=== PATIENT | female | born 1995 | race Hispanic/Latino ===

== ENCOUNTER 2018-10-14 01:43 | Emergency (ER) | payer SELFPAY ==
[~2018-10-14] VITALS: Ht 160 cm; Wt 76.8 kg
[2018-10-14 02:21] LABS: HEMATOCRIT 36.8 % (37.0-47.0); HEMOGLOBIN 12.1 g/dl (12.0-16.0); IMMATURE GRANULOCYTES 0.2 % (0.0-5.0); MEAN CELL VOLUME 83.6 fL CALC (80.0-100.0); MEAN CORPUSCULAR HGB 27.5 pG CALC (26.0-32.0); MEAN CORPUSCULAR HGB CONC 32.9 g/L CALC (32.0-36.0); NEUT# 2.38 thou/uL (2.00-7.15); RED BLOOD COUNT 4.4 mill/uL (4.20-5.60); RED CELL DISTRI WIDTH 13.3 % (11.5-15.5)
[2018-10-14 02:50] VITALS: BP 132/77
[2018-10-14 02:52] LABS: ALBUMIN 4.2 g/dL (3.2-5.0); ALKALINE PHOSPHATASE 74 u/l (38-126); ANION GAP 14 (6-22 (CALC)); BILIRUBIN, TOTAL 0.2 mg/dL (0.0-1.4); BUN 19 mg/dL (7-17); BUN/CREATININE RATIO 26 (12-20 (CALC)); CARBON DIOXIDE 26 mmol/l (22-30); CHLORIDE 105 mmol/l (95-108); CREATININE 0.7 mg/dL (0.5-1.0); GFR > 60 ML/MIN (>=60 (CALC)); GFR FOR AFR.AMER. > 60 ML/MIN (>=60 (CALC)); POTASSIUM 4.1 mmol/l (3.5-5.1); SGOT/AST 18 u/l (14-36); SODIUM 140 mmol/l (137-146); TOTAL PROTEIN 7.2 g/dL (6.3-8.2)
[2018-10-14 03:18] LABS: URINE BILIRUBIN - DIPSTICK NEGATIVE (NEGATIVE); URINE BLOOD DIPSTICK LARGE (NEGATIVE); URINE COLOR YELLOW; URINE GLUCOSE - DIPSTICK NEGATIVE (NEGATIVE); URINE KETONE NEGATIVE (NEGATIVE); URINE LEUK ESTERASE NEGATIVE (NEGATIVE); URINE NITRITE - DIPSTICK NEGATIVE (Negative); URINE PROTEIN - DIPSTICK NEGATIVE (NEG-TRACE); URINE SPECIFIC GRAVITY 1.025; URINE UROBILINOGEN - DIPSTICK 0.2 E.U./dL (0.2)
[2018-10-14] MEDS ORDERED: TRAMADOL HCL50 MG PO (03:21)
[2018-10-14] MEDS ORDERED: TORADOL PO (03:21)
[2018-10-14 03:31] LABS: URINE BACTERIA RARE hpf; URINE SQUAMOUS EPITHELIAL CELL FEW EPI/hpf (0-FEW); URINE WBC 0-2 WBC/hpf (0-5)
[2018-10-15] MEDS ORDERED: PREVACID30 M3 PO (21:16)
== END 2018-10-14 03:42 | disposition home or self-care (01) | DRG 195 ==
LOC: ED 01:43
PROVIDERS: Family Medicine
DX: R09.1 Pleurisy (principal)

== ENCOUNTER 2018-10-15 19:54 | Emergency (ER) | payer SELFPAY ==
[~2018-10-15] VITALS: Ht 160 cm; Wt 75.0 kg
[~2018-10-15 19:54] MED LIST: TORADOL PO; TRAMADOL HCL50 MG PO
[2018-10-15 20:31] LABS: HEMATOCRIT 36.6 % (37.0-47.0); HEMOGLOBIN 12.2 g/dl (12.0-16.0); IMMATURE GRANULOCYTES 0.2 % (0.0-5.0); MEAN CELL VOLUME 83.2 fL CALC (80.0-100.0); MEAN CORPUSCULAR HGB 27.7 pG CALC (26.0-32.0); MEAN CORPUSCULAR HGB CONC 33.3 g/L CALC (32.0-36.0); NEUT# 2.4 thou/uL (2.00-7.15); RED BLOOD COUNT 4.4 mill/uL (4.20-5.60); RED CELL DISTRI WIDTH 13.5 % (11.5-15.5)
[2018-10-15 20:45] LABS: ALBUMIN 4.3 g/dL (3.2-5.0); ALKALINE PHOSPHATASE 81 u/l (38-126); AMYLASE 55 u/l (30-110); ANION GAP 16 (6-22 (CALC)); BUN 14 mg/dL (7-17); BUN/CREATININE RATIO 28 (12-20 (CALC)); CARBON DIOXIDE 22 mmol/l (22-30); CHLORIDE 107 mmol/l (95-108); CREATININE 0.5 mg/dL (0.5-1.0); GFR > 60 ML/MIN (>=60 (CALC)); GFR FOR AFR.AMER. > 60 ML/MIN (>=60 (CALC)); LIPASE 148 u/l (23-300); SGOT/AST 31 u/l (14-36); SODIUM 141 mmol/l (137-146); TOTAL PROTEIN 7.3 g/dL (6.3-8.2)
[2018-10-15 20:49] LABS: BILIRUBIN, TOTAL 0.3 mg/dL (0.0-1.4)
[2018-10-15 21:14] LABS: URINE BILIRUBIN - DIPSTICK NEGATIVE (NEGATIVE); URINE BLOOD DIPSTICK TRACE-INTACT (NEGATIVE); URINE COLOR YELLOW; URINE GLUCOSE - DIPSTICK NEGATIVE (NEGATIVE); URINE KETONE NEGATIVE (NEGATIVE); URINE NITRITE - DIPSTICK NEGATIVE (Negative); URINE PROTEIN - DIPSTICK NEGATIVE (NEG-TRACE); URINE UROBILINOGEN - DIPSTICK 0.2 E.U./dL (0.2)
[2018-10-15] MEDS ORDERED: PREVACID30 M3 PO (21:16)
[2018-10-15 21:18] LABS: URINE LEUK ESTERASE SMALL (NEGATIVE)
[2018-10-15 21:19] VITALS: BP 130/84
[2018-10-15 21:28] LABS: URINE RBC 0-2 RBC/hpf (0-5); URINE SQUAMOUS EPITHELIAL CELL FEW EPI/hpf (0-FEW)
== END 2018-10-15 21:35 | disposition home or self-care (01) | DRG 776 ==
LOC: ED 19:54
PROVIDERS: Emergency Medicine
DX: O99.63 Diseases of the digestive system complicating the puerperium (principal); K29.70 Gastritis, unspecified, without bleeding; B96.81 Helicobacter pylori [H. pylori] as the cause of diseases classified elsewhere

== ENCOUNTER 2018-10-25 02:29 | Observation (INO) | payer SELFPAY ==
[2018-10-25] VITALS (7 sets, daily range): BP systolic 106–128; BP diastolic 50–81
[~2018-10-25] VITALS: Ht 160 cm; Wt 75.5 kg
[~2018-10-25 02:29] MED LIST changes: +PREVACID30 M3 PO
--- NOTE | 2018-10-25 02:40 | NUR ---
AMBULATED TO ROOM
[2018-10-25 03:22] LABS: HEMATOCRIT 39.2 % (37.0-47.0); HEMOGLOBIN 12.9 g/dl (12.0-16.0); IMMATURE GRANULOCYTES 0.1 % (0.0-5.0); MEAN CELL VOLUME 82.2 fL CALC (80.0-100.0); MEAN CORPUSCULAR HGB CONC 32.9 g/L CALC (32.0-36.0); NEUT# 4.76 thou/uL (2.00-7.15); RED BLOOD COUNT 4.77 mill/uL (4.20-5.60); RED CELL DISTRI WIDTH 13.2 % (11.5-15.5)
[2018-10-25 03:26] LABS: URINE BILIRUBIN - DIPSTICK NEGATIVE (NEGATIVE); URINE BLOOD DIPSTICK SMALL (NEGATIVE); URINE COLOR YELLOW; URINE GLUCOSE - DIPSTICK NEGATIVE (NEGATIVE); URINE KETONE NEGATIVE (NEGATIVE); URINE LEUK ESTERASE NEGATIVE (NEGATIVE); URINE NITRITE - DIPSTICK NEGATIVE (Negative); URINE PROTEIN - DIPSTICK NEGATIVE (NEG-TRACE); URINE SPECIFIC GRAVITY 1.015; URINE UROBILINOGEN - DIPSTICK 0.2 E.U./dL (0.2)
[2018-10-25 03:40] LABS: ALBUMIN 4.4 g/dL (3.2-5.0); AMYLASE 40 u/l (30-110); ANION GAP 16 (6-22 (CALC)); BUN 13 mg/dL (7-17); BUN/CREATININE RATIO 24 (12-20 (CALC)); CARBON DIOXIDE 25 mmol/l (22-30); CHLORIDE 106 mmol/l (95-108); CREATININE 0.5 mg/dL (0.5-1.0); GFR > 60 ML/MIN (>=60 (CALC)); GFR FOR AFR.AMER. > 60 ML/MIN (>=60 (CALC)); LIPASE 167 u/l (23-300); POTASSIUM 4.1 mmol/l (3.5-5.1); SODIUM 142 mmol/l (137-146); TOTAL PROTEIN 7.3 g/dL (6.3-8.2)
[2018-10-25 03:41] LABS: ALKALINE PHOSPHATASE 122 u/l (38-126); BILIRUBIN, TOTAL 0.5 mg/dL (0.0-1.4); SGOT/AST 394 u/l (14-36)
[2018-10-25 05:03] LABS: URINE SQUAMOUS EPITHELIAL CELL FEW EPI/hpf (0-FEW)
--- NOTE | 2018-10-25 05:30 | NUR ---
PT COMPLETED CONSTRAST. RESTING. NAD.
--- NOTE | 2018-10-25 07:04 | NUR ---
INTRODUCED SELF TO PT/FAMILY. PT SLEEPING ON RT SIDE AWAKENS EASILY. DENIES PAIN AT THIS TIME. VSS. IV SITE HEALTHY. SKIN WARM/DRY. NO N/V/D. ADVISED OF WAIT TIME FOR TEST RESULTS.
--- NOTE | 2018-10-25 08:04 | NUR ---
AT BEDSIDE DISCUSSING US ORDERED FOR PT AND WAIT TIME. PT VOICE UNDERSTANDING. VSS. NO APPARENT DISTRESS.
--- NOTE | 2018-10-25 09:19 | NUR ---
PT RETURNED FROM US. ADVISED PT OF CURRENT NPO STATUS. WILL UPDATE PT RESULTS OF US ARE PROVIDED.
--- NOTE | 2018-10-25 09:50 | NUR ---
NURSE AT BEDSIDE W/AUTO CARRIER DRIVER PER PT REQUEST AND DISCUSSED POC FOR LAPAROSCOPIC CHOLECYSTECTOMY. PT VOICED UNDERSTANDING. PT BREAST FEEDS DISCUSSED NEED TO PUMP AND DUMP FOR FIRST 24 HOURS POST OP.
--- NOTE | 2018-10-25 10:54 | NUR ---
OR NURSE FILIPPO PRESENT TO TAKE PT TO PREOP. PT VSS IV SITE HEALTHY. NO APPARENT DISTRESS. BEDSIDE REPORT PROVIDED TO OR NURSE.
[2018-10-25] MEDS ORDERED: PERCOCET 5/325M1 TAB PO (12:09)
[2018-10-25] MEDS ORDERED: KETOROLAC10 MG PO (12:10)
--- NOTE | 2018-10-25 12:51 | NUR ---
PT ARRIVED FROM OR VIA STRETCHER ACCOMPANIED BY STAFF,IV SITE IS FREE FROM REDNESS OR EDEMA. DRESSING CDI.
--- NOTE | 2018-10-25 14:05 | NUR ---
ASSESSMENT IS COMPLETED: BREATH SOUNDS ARE CLEAR BILATERALLY, HR IS REG, PULSES ARE STRONG X4, ABD IS SOFT WITH ACTIVE BS. IV SITE IS FREE FROM REDNESS OR EDEMA. INCISIONS ARE CDI.
--- NOTE | 2018-10-25 16:55 | NUR ---
LITERATURE GIVEN FOR DILAUDID IV AND THE EFFECTS OF THE BABY FOR NURSING.
--- NOTE | 2018-10-25 17:59 | NUR ---
PT RECEIVED DISCHARGE INSTRUCTIONS IV SITE DISCONTINUED CATHETER INTACT NO REDNESS OR EDEMA. LITERATURE ON MEDICATIONS THAT WERE GIVEN/ FAMILY IN THE ROOM Discharge instructions given. Patient verbalizes understanding of same. Discharged in stable condition via Wheelchair to Home with family. All belongings sent with pt.
== END 2018-10-25 17:48 | disposition home or self-care (01) | DRG 419 ==
LOC: ED 02:29 → ED-I 09:41 → ED 09:51 → MS2 09:52
PROVIDERS: Family Medicine; ADMIT Internal Medicine Nephrology; ATTEND Surgery
PROC: 0FT44ZZ Resection of Gallbladder, Percutaneous Endoscopic Approach (ICD-10-PCS; principal; 2018-10-25)
DX: K80.12 Calculus of gallbladder with acute and chronic cholecystitis without obstruction (principal)
CPT/HCPCS: J2710; Q9967